=== PATIENT | male | born 1985 | race Caucasian/White ===

== ENCOUNTER 2021-11-06 20:10 | Observation (INO) ==
[2021-11-06 20:48] LABS: Basophils % 0.3 % (0.0-0.8); Eosinophils # 0.1 10*3/uL (0.0-0.87); Eosinophils % 0.6 % (0.00-10.9); Hematocrit 43.2 VOL% (42.0-52.0); Hemoglobin 14.8 GM/DL (14.0-18.0); Immature Granulocytes % 0.3 %; Immature Granulocytes Absolute 0.03 #; Lymphocytes # 2.1 10*3/uL (1.4-4.0); Lymphocytes % 20.8 % (21.2-54.2); Mean Corpuscular HGB Conc 34.3 GM/DL (32-36); Mean Corpuscular Volume 89.1 FL (87-102); Mean Platelet Volume 10.2 FL (9.6-12.0); Monocytes % 4.6 % (1.7-12.7); Neutrophils % 73.4 % (38.7-73.9); Platelet Count 59 T/CUMM (130-400); Red Blood Count 4.85 MC/CUMM (3.8-5.5); Red Cell Distribution Width 13.2 % (9.3-17.3); White Blood Count 10.3 T/CUMM (4-12)
[2021-11-06 21:05] LABS: Albumin 4.3 G/DL (3.4-5.0); Bilirubin,Total 0.9 MG/DL (0.20-1.00); Calcium 8.9 MG/DL (8.5-10.1); Osmolality,Calculated 277.7 MOS/KG (273-304); Potassium 3.8 MMOL/L (3.5-5.1); Total Protein 7.3 G/DL (6.4-8.2)
[2021-11-06] MEDS ORDERED: ONDANSETRON 4 MG/2 ML VIAL IV STA (21:05)
[2021-11-06] MEDS ORDERED: MECLIZINE 25 MG TABLET PO STA (21:05)
[2021-11-06] MEDS ORDERED: SODIUM CHLORIDE 0.9% 500 ML IV STA (21:05)
[2021-11-06] MEDS ORDERED: ASPIRIN 325 MG TABLET PO STA (21:05)
[2021-11-06 21:36] LABS: Thyroid Stimulating Hormone 0.853 uIU/ml (0.358-3.74)
[2021-11-06] MEDS ORDERED: ALUM/MAG/SIMETH/LIDO VISC 1:1 30 ML BOTTLE PO STA (22:32)
[2021-11-06] MEDS ORDERED: ALUM/MAG/SIMETH/LIDO VISC 1:1 30 ML BOTTLE PO ONE (22:33)
[2021-11-06] MEDS ORDERED: ENOXAPARIN 100 MG/ML SYRINGE SUBCUT STA (23:09)
[2021-11-06] MEDS ORDERED: ENOXAPARIN 120 MG/0.8 ML SYRINGE SUBCUT STA (23:10)
[2021-11-06] MEDS ORDERED: GLUCAGON 1 MG VIAL IM PRN (23:19)
[2021-11-06] MEDS ORDERED: DOCUSATE SODIUM 100 MG CAPSULE PO PRN (23:29)
[2021-11-06] MEDS ORDERED: MORPHINE 2 MG/1 ML SYRINGE IV PRN (23:29)
[2021-11-06] MEDS ORDERED: ONDANSETRON 4 MG/2 ML VIAL IV PRN (23:29)
[2021-11-06] MEDS ORDERED: ZALEPLON 5 MG CAPSULE PO PRN (23:29)
[2021-11-06] MEDS ORDERED: ACETAMINOPHEN 325 MG TABLET PO PRN (23:29)
[2021-11-06] MEDS ORDERED: DEXTROSE 10% 250 ML BAG IV PRN (23:51)
[2021-11-07] MEDS ORDERED: ENOXAPARIN 120 MG/0.8 ML SYRINGE SUBCUT SCH (03:30)
[2021-11-07 06:46] LABS: Risk Ratio 3.8; VLDL Cholesterol 23.6 MG/DL
[2021-11-07 08:38] LABS: RBC,Urine 3 /HPF (0-4)
[2021-11-07 08:39] LABS: Bilirubin,Urine Negative (Negative); Blood, Urine Trace mg/dL (Negative); Glucose,Urine (UA) Negative (Negative); Ketones,Urine Trace mg/dL (Negative); Nitrite,Urine Negative (Negative); Protein,Urine Negative (Negative); Urine Appearance Clear (Clear); Urine Color Yellow (Yellow); Urine Specific Gravity 1.025 (1.001-1.035); Urine Urobilinogen 0.2 eU/dL (<2.0)
[2021-11-07 08:47] LABS: Calcium 8.3 MG/DL (8.5-10.1); Osmolality,Calculated 278.5 MOS/KG (273-304)
[2021-11-07 09:00] LABS: Barbiturates Screen,Urine Negative (Negative); Benzodiazepines Screen,Urine Negative (Negative); Cannabinoid Screen,Urine Negative (Negative); Opiate Screen,Urine Negative (Negative); Phencyclidine Screen,Urine Negative (Negative)
[2021-11-07] MEDS ORDERED: ASPIRIN EC 81 MG TABLET PO SCH (09:00)
[2021-11-07] MEDS ORDERED: NON-FORMULARY MEDICATION (Dextroamphetamine-Amphetamine 20 mg tablet) PO SCH (09:00)
[2021-11-07] MEDS ORDERED: FAMOTIDINE 20 MG TABLET PO SCH (09:00)
[2021-11-07 09:14] VITALS: BP 104/69
[2021-11-07 09:33] LABS: Basophils % 0.3 % (0.0-0.8); Eosinophils # 0.1 10*3/uL (0.0-0.87); Eosinophils % 1.9 % (0.00-10.9); Hematocrit 41.2 VOL% (42.0-52.0); Hemoglobin 14.1 GM/DL (14.0-18.0); Immature Granulocytes % 0.2 %; Immature Granulocytes Absolute 0.01 #; Lymphocytes # 2.3 10*3/uL (1.4-4.0); Lymphocytes % 36.5 % (21.2-54.2); Mean Corpuscular HGB Conc 34.2 GM/DL (32-36); Mean Platelet Volume 10.9 FL (9.6-12.0); Monocytes % 5.3 % (1.7-12.7); Neutrophils % 55.8 % (38.7-73.9); Platelet Count 64 T/CUMM (130-400); Red Blood Count 4.58 MC/CUMM (3.8-5.5); Red Cell Distribution Width 13.4 % (9.3-17.3); White Blood Count 6.4 T/CUMM (4-12)
[2021-11-07 09:51] LABS: Hypochromia Slight; Microcytosis 1+
[2021-11-07 09:52] LABS: Platelet Estimate Decreased
[2021-11-07] MEDS ORDERED: ENOXAPARIN 100 MG/ML SYRINGE SUBCUT SCH (11:00)
== END 2021-11-07 10:58 | disposition home or self-care (01) ==
LOC: N.ED 20:10 → N.EDINP 20:10
PROVIDERS: ADMIT Internal Medicine; ATTEND Internal Medicine